=== PATIENT | female | born 1970 | race Two or more races ===

== ENCOUNTER 2021-06-19 11:56 | Emergency (ER) | payer MEDICAID, OTHER ==
[~2021-06-19] VITALS: Ht 152.4 cm; Wt 63.5 kg
[2021-06-19 14:55] LABS: Basophils # (auto) 0.1 10 ^3/uL (0-0.2); Eosinophils # (auto) 0.1 10 ^3/uL (0-0.8); Eosinophils % (auto) 1.7 % (0.0-7.0); Hematocrit 34.2 % (36.0-46.0); Hemoglobin 11.9 g/dL (12.2-16.2); Lymphocytes # (auto) 2.2 10 ^3/uL (0.4-5.4); Lymphocytes % (auto) 39.3 % (10.0-50.0); Mean Corpuscular Hemoglobin 29.8 pg (28.0-32.0); Mean Corpuscular Hgb Conc. 34.7 g/dL (32.0-36.0); Monocytes # (auto) 0.3 10 ^3/uL (0-1.3); Monocytes % (auto) 5.8 % (0.0-12.0); Neutrophils % (auto) 52.2 % (37.0-80.0); Nucleated Red Blood Cells % 0.1 %; Red Blood Cells 3.97 10^6/uL (4.0-5.20); Red Cell Distribution Width 13.4 % (11.8-14.3); White Blood Cell 5.7 10^3/uL (4.4-10.8)
[2021-06-19 15:13] LABS: Albumin 3.6 g/dL (3.4-5.0); Calcium 8.6 mg/dL (8.5-10.1); Potassium 4.1 mmol/L (3.5-5.1)
[2021-06-19 15:19] LABS: BUN/Creatinine Ratio 16.7; Bilirubin, Total 0.4 mg/dL (0.2-1.0)
[2021-06-19] MEDS ORDERED: METR500T PO (17:30)
[2021-06-19] MEDS ORDERED: CIPR-173 PO (17:30)
[2021-06-19] MEDS ORDERED: BISA-13 PO (17:30)
[2021-06-19 17:37] VITALS: BP 133/66
== END 2021-06-19 17:37 | disposition home or self-care (01) ==
LOC: ER 11:56
DX: K62.89 Other specified diseases of anus and rectum (principal); R94.31 Abnormal electrocardiogram [ECG] [EKG]; I10 Essential (primary) hypertension
CPT/HCPCS: 36415; 71045; 74176; 80053; 84484; 85025; 93005

== ENCOUNTER 2023-04-09 10:51 | Emergency (ER) | payer MEDICAID ==
[~2023-04-09] VITALS: Ht 152.4 cm; Wt 55.1 kg
[~2023-04-09 10:51] MED LIST: BISA-13 PO; CIPR-173 PO; METR500T PO
[2023-04-09 12:19] VITALS: BP 92/72; PULSE 72; RESP 16; TEMP 97.6; O2SAT 98
[2023-04-09] MEDS ORDERED: CEPH500C PO (12:59)
[2023-04-09] MEDS ORDERED: NAPR-746 PO (12:59)
== END 2023-04-09 13:10 | disposition home or self-care (01) ==
LOC: ER 10:51
DX: N90.7 Vulvar cyst (principal); I10 Essential (primary) hypertension; E03.9 Hypothyroidism, unspecified; Z79.2 Long term (current) use of antibiotics; Z79.899 Other long term (current) drug therapy; Z88.2 Allergy status to sulfonamides